=== PATIENT | female | born 1945 | race Caucasian/White ===

== ENCOUNTER → 2016-11-27 12:27 | Outpatient (CLI) | payer MEDICARE, OTHER ==
[2016-11-27 12:33] LABS: BASOPHILS 0.8 % (0.0-2.0); EOSINOPHILS 3.5 % (0-7); HEMATOCRIT 40.8 % (36.0-48.0); HEMOGLOBIN 13.4 g/dL (12-16); IMMATURE GRANULOCYTES 0.2 % (0-5); LYMPHOCYTES 29.7 % (15-50); MCH 32.7 pg (26.0-34.0); MCHC 32.8 g/dL (31.0-37.0); MCV 99.5 fL (80.0-100.0); MEAN PLATELET VOLUME 11.7 fL (7.4-10.4); MONOCYTES 8.7 % (2-11); NEUTROPHILS 57.1 % (40-80); PLATELET COUNT 170 10x3/uL (130-400); WBC 5.1 10x3/uL (4.8-10.8)
[2016-11-27 12:53] LABS: ALBUMIN 3.6 g/dL (3.4-5.0); BILIRUBIN - TOTAL 0.27 mg/dL (0.2-1.3); CALCIUM 8.6 mg/dL (8.5-10.1); CREATININE - SERUM 0.8 mg/dL (0.6-1.3); PROTEIN - SERUM 6.6 g/dL (6.4-8.2)
== END | disposition home or self-care (01) ==
LOC: D.LABREF 12:27
PROVIDERS: Student in an Organized Health Care Education/Training Program
DX: Z51.81 Encounter for therapeutic drug level monitoring (principal); Z79.2 Long term (current) use of antibiotics; A31.0 Pulmonary mycobacterial infection

== ENCOUNTER → 2017-01-25 11:23 | Outpatient (CLI) | payer MEDICARE, OTHER ==
[2017-01-25 12:55] LABS: EOSINOPHILS 3.4 % (0-7); HEMATOCRIT 41.7 % (36.0-48.0); HEMOGLOBIN 13.6 g/dL (12-16); IMMATURE GRANULOCYTES 0.2 % (0-5); LYMPHOCYTES 28.9 % (15-50); MCH 32.3 pg (26.0-34.0); MCHC 32.6 g/dL (31.0-37.0); MEAN PLATELET VOLUME 11.9 fL (7.4-10.4); MONOCYTES 9.8 % (2-11); NEUTROPHILS 56.7 % (40-80); PLATELET COUNT 189 10x3/uL (130-400); RBC 4.21 10x6/uL (4.00-5.40); RDW 13.2 % (11.5-14.5); WBC 5.8 10x3/uL (4.8-10.8)
[2017-01-25 13:16] LABS: ALBUMIN 3.9 g/dL (3.4-5.0); ANION GAP 24.7 mmol/L (8-16); BILIRUBIN - TOTAL 0.93 mg/dL (0.2-1.3); CALCIUM 8.3 mg/dL (8.5-10.1); CARBON DIOXIDE 29.4 mmol/L (21.0-32.0); CREATININE - SERUM 0.8 mg/dL (0.6-1.3); POTASSIUM - SERUM 4.1 mmol/L (3.5-5.1); PROTEIN - SERUM 6.9 g/dL (6.4-8.2)
== END | disposition home or self-care (01) ==
LOC: D.LAB 11:23
PROVIDERS: Student in an Organized Health Care Education/Training Program
DX: A31.0 Pulmonary mycobacterial infection (principal); Z79.2 Long term (current) use of antibiotics

== ENCOUNTER → 2017-03-14 11:53 | Outpatient (CLI) | payer MEDICARE, OTHER ==
[2017-03-14 12:08] LABS: BASOPHILS 0.5 % (0-2); EOSINOPHILS 4.6 % (0-7); HEMATOCRIT 41.1 % (36.0-48.0); HEMOGLOBIN 13.5 g/dL (12-16); IMMATURE GRANULOCYTES 0.2 % (0-5); LYMPHOCYTES 31.7 % (15-50); MCH 32.9 pg (26.0-34.0); MCHC 32.8 g/dL (31.0-37.0); MCV 100.2 fL (80.0-100.0); MEAN PLATELET VOLUME 11.3 fL (7.4-10.4); MONOCYTES 6.4 % (2-11); NEUTROPHILS 56.6 % (40-80); PLATELET COUNT 192 10x3/uL (130-400); WBC 5.5 10x3/uL (4.8-10.8)
[2017-03-14 12:37] LABS: ALBUMIN 3.9 g/dL (3.4-5.0); ANION GAP 10.5 mmol/L (8-16); BILIRUBIN - TOTAL 0.32 mg/dL (0.2-1.3); CALCIUM 8.9 mg/dL (8.5-10.1); CARBON DIOXIDE 29.6 mmol/L (21.0-32.0); CREATININE - SERUM 0.9 mg/dL (0.6-1.3); POTASSIUM - SERUM 4.1 mmol/L (3.5-5.1); PROTEIN - SERUM 6.9 g/dL (6.4-8.2)
== END | disposition home or self-care (01) ==
LOC: D.LABREF 11:53
PROVIDERS: Student in an Organized Health Care Education/Training Program
DX: A31.0 Pulmonary mycobacterial infection (principal); Z51.81 Encounter for therapeutic drug level monitoring; Z79.2 Long term (current) use of antibiotics

== ENCOUNTER → 2017-05-15 17:00 | Outpatient (CLI) | payer MEDICARE, OTHER ==
[2017-05-15 17:33] LABS: BASOPHILS 0.8 % (0-2); EOSINOPHILS 5.2 % (0-7); HEMOGLOBIN 13.7 g/dL (12-16); IMMATURE GRANULOCYTES 0.2 % (0-5); LYMPHOCYTES 31.2 % (15-50); MCH 33.3 pg (26.0-34.0); MCHC 33.4 g/dL (31.0-37.0); MCV 99.5 fL (80.0-100.0); MEAN PLATELET VOLUME 11.8 fL (7.4-10.4); MONOCYTES 7.6 % (2-11); PLATELET COUNT 200 10x3/uL (130-400); RBC 4.12 10x6/uL (4.00-5.40); RDW 13.2 % (11.5-14.5); WBC 6.2 10x3/uL (4.8-10.8)
[2017-05-15 17:47] LABS: ALBUMIN 3.8 g/dL (3.4-5.0); ANION GAP 14.4 mmol/L (8-16); BILIRUBIN - TOTAL 0.67 mg/dL (0.2-1.3); CALCIUM 8.9 mg/dL (8.5-10.1); CARBON DIOXIDE 26.9 mmol/L (21.0-32.0); CREATININE - SERUM 0.9 mg/dL (0.6-1.3); POTASSIUM - SERUM 4.3 mmol/L (3.5-5.1); PROTEIN - SERUM 6.9 g/dL (6.4-8.2)
== END | disposition home or self-care (01) ==
LOC: D.LABREF 17:00
PROVIDERS: Student in an Organized Health Care Education/Training Program
DX: A31.0 Pulmonary mycobacterial infection (principal); Z51.81 Encounter for therapeutic drug level monitoring; Z79.2 Long term (current) use of antibiotics

== ENCOUNTER → 2017-09-06 10:27 | Outpatient (CLI) | payer MEDICARE, OTHER ==
[2017-09-06 14:37] LABS: BASOPHILS 0.5 % (0-2); EOSINOPHILS 3.7 % (0-7); HEMATOCRIT 41.7 % (36.0-48.0); HEMOGLOBIN 13.8 g/dL (12-16); IMMATURE GRANULOCYTES 0.5 % (0-5); LYMPHOCYTES 25.4 % (15-50); MCH 33.6 pg (26.0-34.0); MCHC 33.1 g/dL (31.0-37.0); MCV 101.5 fL (80.0-100.0); MEAN PLATELET VOLUME 11.3 fL (7.4-10.4); MONOCYTES 8.7 % (2-11); NEUTROPHILS 61.2 % (40-80); PLATELET COUNT 180 10x3/uL (130-400); RBC 4.11 10x6/uL (4.00-5.40); RDW 13.2 % (11.5-14.5)
[2017-09-06 14:51] LABS: ALBUMIN 3.7 g/dL (3.4-5.0); ANION GAP 11.1 mmol/L (8-16); BILIRUBIN - TOTAL 0.91 mg/dL (0.2-1.3); CALCIUM 8.5 mg/dL (8.5-10.1); CARBON DIOXIDE 28.7 mmol/L (21.0-32.0); CREATININE - SERUM 0.8 mg/dL (0.6-1.3); POTASSIUM - SERUM 3.8 mmol/L (3.5-5.1); PROTEIN - SERUM 6.7 g/dL (6.4-8.2)
== END | disposition home or self-care (01) ==
LOC: D.LABREF 10:27
PROVIDERS: Student in an Organized Health Care Education/Training Program
DX: A31.0 Pulmonary mycobacterial infection (principal); Z51.81 Encounter for therapeutic drug level monitoring; Z79.2 Long term (current) use of antibiotics

== ENCOUNTER → 2017-12-11 16:28 | Outpatient (CLI) | payer MEDICARE, OTHER ==
[2017-12-11 19:42] LABS: BASOPHILS 0.6 % (0-2); EOSINOPHILS 5.7 % (0-7); HEMATOCRIT 41.7 % (36.0-48.0); HEMOGLOBIN 13.8 g/dL (12-16); IMMATURE GRANULOCYTES 0.4 % (0-5); LYMPHOCYTES 27.7 % (15-50); MCH 33.2 pg (26.0-34.0); MCHC 33.1 g/dL (31.0-37.0); MCV 100.2 fL (80.0-100.0); MEAN PLATELET VOLUME 11.8 fL (7.4-10.4); MONOCYTES 10.9 % (2-11); NEUTROPHILS 54.7 % (40-80); PLATELET COUNT 203 10x3/uL (130-400); RBC 4.16 10x6/uL (4.00-5.40); RDW 12.8 % (11.5-14.5); WBC 6.7 10x3/uL (4.8-10.8)
[2017-12-11 19:55] LABS: ALBUMIN 3.8 g/dL (3.4-5.0); ANION GAP 14.7 mmol/L (8-16); BILIRUBIN - TOTAL 0.57 mg/dL (0.2-1.3); CALCIUM 8.3 mg/dL (8.5-10.1); CARBON DIOXIDE 26.6 mmol/L (21.0-32.0); CREATININE - SERUM 0.8 mg/dL (0.6-1.3); POTASSIUM - SERUM 4.3 mmol/L (3.5-5.1); PROTEIN - SERUM 6.7 g/dL (6.4-8.2)
== END | disposition home or self-care (01) ==
LOC: D.LABREF 16:28
PROVIDERS: Student in an Organized Health Care Education/Training Program
DX: A31.0 Pulmonary mycobacterial infection (principal); Z51.81 Encounter for therapeutic drug level monitoring; Z79.2 Long term (current) use of antibiotics

== ENCOUNTER → 2018-02-11 10:26 | Outpatient (CLI) | payer MEDICARE, OTHER ==
[2018-02-11 11:53] LABS: BASOPHILS 0.5 % (0-2); HEMATOCRIT 40.1 % (36.0-48.0); HEMOGLOBIN 13.2 g/dL (12-16); IMMATURE GRANULOCYTES 0.3 % (0-5); LYMPHOCYTES 23.1 % (15-50); MCH 32.8 pg (26.0-34.0); MCHC 32.9 g/dL (31.0-37.0); MCV 99.5 fL (80.0-100.0); MEAN PLATELET VOLUME 11.7 fL (7.4-10.4); MONOCYTES 9.4 % (2-11); NEUTROPHILS 59.7 % (40-80); PLATELET COUNT 188 10x3/uL (130-400); RBC 4.03 10x6/uL (4.00-5.40); RDW 12.8 % (11.5-14.5); WBC 6.5 10x3/uL (4.8-10.8)
[2018-02-11 12:15] LABS: ALBUMIN 3.6 g/dL (3.4-5.0); ANION GAP 13.5 mmol/L (8-16); BILIRUBIN - TOTAL 0.31 mg/dL (0.2-1.3); CALCIUM 8.5 mg/dL (8.5-10.1); CARBON DIOXIDE 28.6 mmol/L (21.0-32.0); CREATININE - SERUM 0.9 mg/dL (0.6-1.3); POTASSIUM - SERUM 4.1 mmol/L (3.5-5.1); PROTEIN - SERUM 6.9 g/dL (6.4-8.2)
== END | disposition home or self-care (01) ==
LOC: D.LABREF 10:26
PROVIDERS: Student in an Organized Health Care Education/Training Program
DX: A31.0 Pulmonary mycobacterial infection (principal); Z51.81 Encounter for therapeutic drug level monitoring; Z79.2 Long term (current) use of antibiotics

== ENCOUNTER → 2018-04-23 18:41 | Outpatient (CLI) | payer MEDICARE, OTHER ==
[2018-04-23 19:54] LABS: BASOPHILS 0.7 % (0-2); EOSINOPHILS 4.4 % (0-7); HEMOGLOBIN 13.6 g/dL (12-16); IMMATURE GRANULOCYTES 0.2 % (0-5); LYMPHOCYTES 35.8 % (15-50); MCH 32.9 pg (26.0-34.0); MCHC 33.2 g/dL (31.0-37.0); MCV 99.3 fL (80.0-100.0); MEAN PLATELET VOLUME 11.7 fL (7.4-10.4); MONOCYTES 9.3 % (2-11); NEUTROPHILS 49.6 % (40-80); PLATELET COUNT 188 10x3/uL (130-400); RBC 4.13 10x6/uL (4.00-5.40); RDW 13.2 % (11.5-14.5); WBC 5.5 10x3/uL (4.8-10.8)
[2018-04-23 20:50] LABS: ALBUMIN 3.7 g/dL (3.4-5.0); ANION GAP 10.7 mmol/L (8-16); BILIRUBIN - TOTAL 0.62 mg/dL (0.2-1.3); CALCIUM 8.8 mg/dL (8.5-10.1); CARBON DIOXIDE 30.4 mmol/L (21.0-32.0); CREATININE - SERUM 0.9 mg/dL (0.6-1.3); POTASSIUM - SERUM 4.1 mmol/L (3.5-5.1); PROTEIN - SERUM 6.8 g/dL (6.4-8.2)
== END | disposition home or self-care (01) ==
LOC: D.LABREF 18:41
PROVIDERS: Student in an Organized Health Care Education/Training Program
DX: A31.0 Pulmonary mycobacterial infection (principal); Z51.81 Encounter for therapeutic drug level monitoring; Z79.899 Other long term (current) drug therapy

== ENCOUNTER → 2018-11-25 16:14 | Outpatient (CLI) | payer MEDICARE | END | disposition home or self-care (01) | LOC: D.LABREF 16:14 | DX: R05 Cough (principal) ==

== ENCOUNTER → 2018-11-26 17:14 | Outpatient (CLI) | payer MEDICARE | END | disposition home or self-care (01) | LOC: D.LABREF 17:14 | DX: R05 Cough (principal) ==

== ENCOUNTER 2019-02-16 06:14 | Day surgery (SDC) | payer MEDICARE, OTHER ==
[~2019-02-16 06:14] MED LIST: ALBUTEROL SULF8.5 GM INH; CELEXA40 MG PO; MOBIC7.5 MG PO; SINGULAIR10 MG PO
[2019-02-16 06:47] LABS: HEMATOCRIT 40.1 % (36.0-48.0); HEMOGLOBIN 13.4 g/dL (12-16); MCH 32.6 pg (26.0-34.0); MCHC 33.4 g/dL (31.0-37.0); MCV 97.6 fL (80.0-100.0); MEAN PLATELET VOLUME 11.2 fL (7.4-10.4); RBC 4.11 10x6/uL (4.00-5.40); RDW 13.1 % (11.5-14.5); WBC 5.6 10x3/uL (4.8-10.8)
[2019-02-16] MEDS ORDERED: VITAMIN B-12500 MC1 (07:43)
[2019-02-16] MEDS ORDERED: VITAMIN D3400 UNI1 (07:44)
[2019-02-16] MEDS ORDERED: VITAMIN D (07:45)
[2019-02-16 08:02] VITALS: BP 143/63; BMI 27.3
[2019-02-16] MEDS ORDERED: VALIUM5 MG PO (12:30)
[2019-02-16] MEDS ORDERED: MIRALAX17 GM PO (12:31)
== END 2019-02-16 15:00 | disposition home or self-care (01) ==
LOC: D.OPS 06:14
PROVIDERS: Anesthesiology
DX: K64.0 First degree hemorrhoids (principal); Z01.812 Encounter for preprocedural laboratory examination